=== PATIENT | male | born 1995 ===

== ENCOUNTER → 2022-05-05 | Emergency (ER) | payer BC ==
[~2022-05-05] VITALS: Ht 177.8 cm; Wt 71.7 kg
[~2022-05-05] MED LIST: AMOX-CLAV 875-1 EACH PO; BIKTARVY 50-201 EACH PO; INTESTINEX680 M1 PO
== END | disposition home or self-care (01) ==
LOC: ER 01:20
DX: S40.871A Other superficial bite of right upper arm, initial encounter (principal); W54.0XXA Bitten by dog, initial encounter; Y93.9 Activity, unspecified; Y92.89 Other specified places as the place of occurrence of the external cause; Y99.9 Unspecified external cause status